=== PATIENT | female | born 1970 | race Caucasian/White ===

== ENCOUNTER → 2016-08-10 | Outpatient (CLI) | payer BC ==
[~2016-08-10] MED LIST: ALBU8.5H2 IH; AZIT250T81 PO; BENZ-22 PO; FLUT100B IH; METH4TAB27 PO; SULF-221 PO
[2016-08-10 14:06] VITALS: BP 122/84
--- NOTE | 2016-08-10 14:06 | Urgent Care T Sheet Gen (E) ---
Intake General Temperature (Fahrenheit): 98.1 Pulse: 82 Blood Pressure Systolic: 122 Blood Pressure Diastolic: 84 Respirations: 18 SPO2: 100 Description of Symptoms Patient presents with a recurrent URI. Over the past 4 weeks, the patient has been dealing with intermittent nasal congestion, PND and cough. States she was placed on a steroid approx 3 weeks ago and felt great. Since stopping the steroid, her symptoms have gradually worsened. Her family members have all been sick lately with URI symptoms. 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 She also notes fatigue just from caring for her sick children. Been using neti pot without much relief. History of Present Illness Home Meds Active Scripts Sulfamethoxazole/Trimethoprim (Sulfamethoxazole/Trimethoprim DS 800mg/160mg)1 Each Tablet1 Each PO BID #14 TAB Prov:SANDRA DIANE 08/10/16 Methylprednisolone (Medrol Dosepack)21 Tab/Pkt Tablet6 Tab PO DAILY Inflammation #1 PKT Ref 0 Take 6 tabs po on day 1 then decrease by 1 tab daily until packet is gone. Prov:SANDRA DIANE 08/10/16 Benzonatate (Tessalon Perles)100 Mg Olwjtle196 Mg PO TID PRN COUGH #15 CAP Prov:SANDRA DIANE 07/19/16 Methylprednisolone (Medrol Dosepack)21 Tab/Pkt Tablet6 Tab PO DAILY Inflammation #1 PKT Ref 0 Prov:SANDRA DIANE 07/19/16 Respiratory Constitutional Symptoms: No Fever, Malaise EENTM: Nose Congestion Throat pain Respiratory: Cough Cardiovascular: No symptoms reported Gastrointestinal/Abdominal: No symptoms reported All Other Systems Reviewed Remaining Systems: All other systems reviewed with negative findings Physical Exam Physical Exam General Appearance: WD/WN No apparent distress Eyes, Ears, Nose, Throat Ex: TMs normal Pharyngeal erythema (cobblestone appearance) Other (red, swollen nasal congestion with thick drainage) Neck Exam: SuppleNo Lymphadenopathy Respiratory Exam: Lungs clear Normal breath sounds Cardiovascular Exam: Regular rate, rhythm Departure Urgent Care Impression Impression: Primary Impression: Sinusitis Qualified Code: J01.00 - Acute maxillary sinusitis, unspecified Departure Disposition: HOME OR SELF-CARE Condition: Stable Referrals: BLANCA CLIFFORD MD (PCP) Additional Instructions: With her recurrent illness, I have opted to treat. I have started her on Bactrim I have also prescribed Medrol dose pack for swelling and inflammation No NSAIDs while on steroid Rest. Fluids Return as needed Patient understands DC instructions. All questions were answered. Scripts Sulfamethoxazole/Trimethoprim (Sulfamethoxazole/Trimethoprim DS 800mg/160mg)1 Each Tablet1 Each PO BID #14 TAB Prov:SANDRA DIANE 08/10/16 Methylprednisolone (Medrol Dosepack)21 Tab/Pkt Tablet6 Tab PO DAILY Inflammation #1 PKT Ref 0 Take 6 tabs po on day 1 then decrease by 1 tab daily until packet is gone. Prov:SANDRA DIANE 08/10/16 End of report . SANDRA DIANE Aug 10, 2016 13:30
== END ==
LOC: MHUC 13:10
PROVIDERS: ATTEND Physician Assistant
DX: J01.00 Acute maxillary sinusitis, unspecified (principal)
CPT/HCPCS: 99213

== ENCOUNTER → 2016-09-23 | Outpatient (CLI) | payer BC ==
[2016-09-23 15:41] VITALS: BP 115/73
== END ==
LOC: MHUC 13:57
PROVIDERS: ATTEND Physician Assistant
DX: J30.1 Allergic rhinitis due to pollen (principal)
CPT/HCPCS: 96372; 99213

== ENCOUNTER → 2016-09-30 | Outpatient (CLI) | payer BC ==
[2016-10-01 09:10] VITALS: BP 134/86
== END ==
LOC: MHUC 19:39
PROVIDERS: ATTEND Nurse Practitioner Family
DX: J20.8 Acute bronchitis due to other specified organisms (principal); J30.89 Other allergic rhinitis
CPT/HCPCS: 99213